=== PATIENT | male | born 1960 | race Caucasian/White ===

== ENCOUNTER 2022-07-18 21:48 | Emergency (ER) | payer OTHER, SELFPAY ==
[2022-07-18 21:50] VITALS: BP 112/59; PULSE 66; RESP 18; TEMP 36.8; O2SAT 99; BMI 32.3
--- NOTE | 2022-07-18 22:00 | CT_ITS ---
PROCEDURE INFORMATION: Exam: CT Abdomen And Pelvis With Contrast Exam date and time: 07/18/2022 11:41 PM Age: 62 years old Clinical indication: Abdominal pain; Patient HX: PT C/O abd pain that stated today TECHNIQUE: Imaging protocol: Computed tomography of the abdomen and pelvis with contrast. Radiation optimization: All CT scans at this facility use at least one of these dose optimization techniques: automated exposure control; mA and/or kV adjustment per patient size (includes targeted exams where dose is matched to clinical indication); or iterative reconstruction. Contrast material: ISOVUE; Contrast volume: 75 ml; Contrast route: IV; COMPARISON: No relevant prior studies available. FINDINGS: Liver: No suspicious mass. Gallbladder and bile ducts: Mild intrahepatic biliary duct dilatation. Cholelithiasis included in the gallbladder neck. Distended gallbladder. Pancreas: No ductal dilation. No peripancreatic inflammatory changes. Spleen: Unremarkable. Adrenal glands: No mass. Kidneys and ureters: No hydronephrosis. Unremarkable renogram. Stomach and bowel: Non-obstructive bowel gas pattern. No significant wall thickening. Appendix: No evidence of appendicitis. Intraperitoneal space: No free air. No ascites. Vasculature: Stent in the left common iliac artery. Atherosclerotic calcifications. Lymph nodes: No enlarged lymph nodes. Urinary bladder: Unremarkable as visualized. Reproductive: Enlarged prostate. Bones/joints: No suspicious osseous lesion. No acute fracture. Scattered degenerative changes. Soft tissues: Small fat containing left inguinal hernia. IMPRESSION: 1. Cholelithiasis included in the gallbladder neck. Distended gallbladder. Recommend sonographic correlation to exclude acute cholecystitis. 2. Mild intrahepatic biliary duct dilatation. Correlate with LFTs.
[2022-07-18 22:07] LABS: Microscopic, Urine URINE MICROSCOPIC (MICROSCOPIC)
[2022-07-18 22:13] LABS: Appearance,Urine CLEAR (Clear); Blood, Urine Negative (Negative); Color,Urine DK YELLOW (Yellow); Glucose,Urine (UA) TRACE (Negative); Ketones,Urine Negative (Negative); Leukocyte Esterase,Urine Negative (Negative); Nitrate,Urine Negative (Negative); PH,Urine 6.5 (5.0-8.5); Protein,Urine TRACE (Negative); Specific Gravity, Urine 1.025 (1.005-1.030)
[2022-07-18 22:14] LABS: Bilirubin,Urine 2+ (Negative)
[2022-07-18 22:16] LABS: Basophils % 0.6 % (0.1-2.0); Eosinophils # 0.1 K/mm3 (0.0-0.4); Eosinophils % 1.6 % (0.1-12.0); Hemoglobin 14.4 g/dL (14.1-18.0); Lymphocytes # 0.6 K/mm3 (0.7-4.5); Lymphocytes % 9.6 % (10-50); Mean Corpuscular HGB Conc 31.4 g/dL (31.8-35.4); Mean Corpuscular Hemoglobin 29.8 pg (27.0-31.2); Mean Corpuscular Volume 94.9 fl (80-94); Mean Platelet Volume 8.8 fl (7.4-10.4); Monocytes # 0.3 K/mm3 (0.1-1.0); Monocytes % 4.3 % (1.7-9.3); Neutrophils # 5.6 K/mm3 (1.8-7.8); Neutrophils % 83.9 % (37.0-80.0); Platelet Count 211 K/mm3 (142-424); Red Blood Count 4.85 M/mm3 (4.60-6.20); Red Cell Distribution Width 12.8 % (11.5-17.5); White Blood Count 6.7 K/mm3 (4.8-10.8)
[2022-07-18 22:26] LABS: Alanine Aminotransferase 692 U/L (12-78); Albumin Level 4.5 g/dl (3.5-5.0); Albumin/Globulin Ratio 1.5 (1.1-1.8); Alkaline Phosphatase 107 U/L (38-126); Amylase 98 U/L (30-110); Anion Gap 13.9 mEq/L (5-15); Bilirubin,Total 3.6 mg/dl (0.2-1.3); Blood Urea Nitrogen 25 mg/dl (9-20); Calcium 9.4 mg/dl (8.4-10.2); Carbon Dioxide 32 mmol/L (22.0-30.0); Chloride 98 mmol/L (98-107); Creatinine Clearance Estimated 84 mL/min (50-200); Estimated Glomerular Filt Rate 56 ml/min (>60); GFR (African American) 67 ML/MIN (>60); Globulin 3.1 g/dL (1.3-3.2); Glucose 181 mg/dl (74-100); Lipase 128 U/L (23-300); Potassium 4.9 mmoL/L (3.5-5.1); Sodium 139 mmol/L (136-145); Total Protein,Serum 7.6 g/dl (6.3-8.2)
[2022-07-18 22:33] LABS: Aspartate Amino Transferase 976 U/L (17-59)
[2022-07-18 22:38] LABS: RBC,Urine Occasional #/hpf (0-3); WBC,Urine Occasional #/hpf (0-3)
[2022-07-18 22:39] LABS: Bacteria,Urine Trace /lpf; Mucus,Urine 3+ /lpf
--- NOTE | 2022-07-18 22:54 | PC.NURSE ---
Pt returned to room from RAD
--- NOTE | 2022-07-19 00:13 | [facility].EDABDPAI ---
Discharge Plan Disposition Chief Complaint: Abdominal Pain Prescriptions Prescriptions: No Action atorvastatin 20 mg tablet 20 mg PO HS Label Comments: TAKE 1 TABLET BY MOUTH ONCE DAILY doxazosin 4 mg tablet 4 mg PO DAILY Label Comments: TAKE 1 TABLET BY MOUTH ONCE DAILY aspirin 81 mg Tablet 81 mg PO DAILY lisinopril 5 mg tablet 5 mg PO DAILY Label Comments: TAKE 1 TABLET BY MOUTH ONCE DAILY Referrals Follow up/Referrals: Everardo Avendaño MD [Primary Care Provider] - See instructions Case,Tyler [Referring] - See instructions Clinical Impressions Clinical Impression: Gallstones Instructions Patient Instructions: DI for Acute Abdominal Pain Discharge ED Provider: Reji Becerril Abdominal Pain HPI General Chief Complaint: Abdominal Pain Stated Complaint: Upper Abd Pain, SOB Time Seen by Provider: 07/19/22 00:13 Mode of Arrival: Ambulatory Source of Information: Patient, Spouse and Medical Record Limitations: No Limitations Description of Symptoms (Recalled from ER Triage Doc. by RN): pt c/o upper abd pain with nauesa that got worse after eating supper around 5 History of Present Illness HPI narrative: acute upper abd pain which started tonight assoc with nausea complaint: abdominal pain Onset (ago): hour(s) Consistency: intermittent Location: epigastric Severity: moderate Associated symptoms: denies other symptoms Related Data Home Medications Medication Instructions Recorded Confirmed aspirin 81 mg tablet 81 mg PO DAILY Heart disease 07/19/22 07/19/22 atorvastatin 20 mg tablet 20 mg PO HS hyperlipidemia 07/19/22 07/19/22 doxazosin 4 mg tablet 4 mg PO DAILY enlarged prostate 07/19/22 07/19/22 lisinopril 5 mg tablet 5 mg PO DAILY High blood pressure 07/19/22 07/19/22 Allergies Allergy/AdvReac Type Severity Reaction Status Date / Time No Known Allergies Allergy Verified 07/18/22 21:59 PFSH PFSH Social History Smoking Status: Former smoker alcohol intake: never current occupational status: retired Travel in the last 8 weeks: None ROS Obtained: Yes All systems reviewed & no additional complaints except as documented Physical Exam General General appearance: alert Head Head exam: normocephalic Eye Eye exam: Present PERRL and EOMI ENT ENT exam: Present mucous membranes moist Neck Neck exam: Present trachea midline Respiratory Respiratory exam: Absent respiratory distress Cardiovascular Cardiovascular exam: Present regular rate, systolic murmur and +S4 Abdominal Exam Abdominal exam: Present soft and tenderness Abdominal tenderness: Present epigastrium and moderate Extremities Exam Extremities exam: Absent calf tenderness Neurological Exam Neurological exam: Present alert, oriented X3 and CN II-XII intact Skin Skin exam: Absent rash Medical Decision Making Medical Records Medical records reviewed: Yes I reviewed the patient's medical records. Leonidas Inquiry Pt receiving controlled substance: No Vital Signs: 07/18/22 21:50 Temperature 98.2 F Temperature Source Oral Pulse Rate [Right] 66 Respiratory Rate 18 Blood Pressure [Right Arm] 112/59 L Blood Pressure Mean [Right Arm] 76 02 Sat by Pulse Oximetry 99 Lab Data Lab results reviewed: Yes I reviewed the patient's lab results. Lab Results 07/18/22 21:55: Urine Color Dk yellow, Urine Appearance Clear, Urine pH 6.5, Ur Specific Campbell 1.025, Urine Protein Trace, Urine Glucose (UA) Trace, Urine Ketones Negative, Urine Blood Negative, Urine Nitrate Negative, Urine Bilirubin 2+ A, Urine Urobilinogen 2.0, Ur Leukocyte Esterase Negative, Urine RBC Occasional, Urine WBC Occasional, Ur Squamous Epith Cells 3-5, Urine Bacteria Trace, Urine Mucus 3+ 07/18/22 22:08: WBC 6.7, RBC 4.85, Hgb 14.4, Hct 46.0, MCV 94.9 H, MCH 29.8, MCHC 31.4 L, RDW 12.8, Plt Count 211, MPV 8.8, Neut % (Auto) 83.9 H, Lymph % (Auto) 9.6 L, [place] % (Auto) 4.3, Eos % (Auto) 1.6, Baso % (Aut
--- NOTE | 2022-07-19 00:20 | PC.NURSE ---
paged @ this time.
--- NOTE | 2022-07-19 00:20 | PC.NURSE ---
talking to @ this time.
--- NOTE | 2022-07-19 00:43 | PC.NURSE ---
on phone with Dr.Knight gamez/ Vanda @ this time.
--- NOTE | 2022-07-19 01:07 | PC.NURSE ---
verbal order given for morphine and tylenol 3 take home pack
[2022-07-19 01:21] VITALS: BP 112/59; PULSE 88; RESP 16; TEMP 36.7; O2SAT 98
== END 2022-07-19 01:25 | disposition home or self-care (01) ==
PROVIDERS: Emergency Provider Emergency Medicine; PCP Pediatrics
DX: R10.13 Epigastric pain (principal); R06.02 Shortness of breath; R11.0 Nausea; R01.1 Cardiac murmur, unspecified; E78.5 Hyperlipidemia, unspecified; N40.0 Benign prostatic hyperplasia without lower urinary tract symptoms; Z79.82 Long term (current) use of aspirin; Z79.899 Other long term (current) drug therapy; Z87.891 Personal history of nicotine dependence
CPT/HCPCS: 74177; 80053; 81001; 82150; 83690; 85025; 96361; 96374; 96375; 99285; J2405; Q9967